=== PATIENT | female | born 1975 | race African-American/Black ===

== ENCOUNTER 2021-03-01 21:57 | Emergency (ER) | payer OTHER ==
[2021-03-01] MEDS ORDERED: DIPHTH,PERTUSS(ACELL),TET 0.5 ML DISP.SYRIN IM ONE (22:10)
[2021-03-01] MEDS ORDERED: BACITRACIN 15 GM TUBE TOPICAL OINTMENT ONE (22:13)
[2021-03-01 22:26] VITALS: BP 126/74; PULSE 84; TEMP 97.8; BMI 27.4
== END 2021-03-01 22:22 | disposition home or self-care (01) ==
LOC: JER 21:57
PROC: 3E0234Z Introduction of Serum, Toxoid and Vaccine into Muscle, Percutaneous Approach (ICD-10-PCS; principal; 2021-03-01)
DX: M79.642 Pain in left hand (principal)
CPT/HCPCS: 73130-TC-LT-FY; 90715; 99284-25